=== PATIENT | female | born 1970 | race Caucasian/White ===

== ENCOUNTER 2020-02-24 00:16 | Emergency (ER) | payer OTHER, SELFPAY ==
--- NOTE | ~2020-02-24 | XR_ITS ---
EXAMINATION: XR tibia fibula RT 2V, XR ankle RT min 3V DATE: 02/24/2020 01:02 INDICATION: Right lower leg and ankle 2 weeks post orthopedic instrumentation removal at the right an kle. TECHNIQUE: 1. Anteroposterior and lateral views of the right tibia and fibula were obtained. 2. Anteroposterior, oblique, mortise, and lateral views of the right ankle were obtained. COMPARISON: None. FINDINGS: Old healed fracture deformity at the distal right tibia and fibula. Splinting material about the foot , ankle and distal lower leg which mildly limits assessment of fine bone and soft tissue detail. Alig nment is otherwise normal. There are multiple lucent screw tracks along the tibia and fibula consiste nt with given history of recently removed orthopedic instrumentation. No acute fracture. 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 Prominent subarticular cystic [place]ap[place] ge at the distal tibia. The cortices are indistinct along the talar dome and tibial plafond and as we ll as along the side of the distal fibula. Findings could be related to secondary osteoarthritis also raises concern for septic arthritis and osteomyelitis. Mild osteoarthritis at the first metatarsopha langeal and a few tarsal metatarsal joints. IMPRESSION: 1. Old healed distal right tibia and fibular fractures with lucent screw tracks from reportedly recen tly removed orthopedic instrumentation. No acute fracture. 2. Loss of well-defined cortical margins at the talar dome and adjacent distal tibia and fibula which could be related to advanced secondary osteoarthritis but raises concern for septic arthritis and os teomyelitis. Dr. Pearce discussed these findings with Dr. Rey at 10:35 AM. Reviewed, dictated and finalized at location A. IMPRESSION: 1. Old healed distal right tibia and fibular fractures with lucent screw tracks from reportedly recently removed orthopedic instrumentation. No acute fracture . 2. Loss of well-defined cortical margins at the talar dome and adjacent distal tibia and fibula which could be related to advanced secondary osteoarthritis bu t raises concern for septic arthritis and osteomyelitis. Dr. Pearce discussed these findings with Dr. Rey at 10:35 AM.
[2020-02-24 00:18] VITALS: BP 144/93; PULSE 112; RESP 18; TEMP 36.8; O2SAT 98
--- NOTE | 2020-02-24 00:24 | PC.NURSE ---
Upon walking into patient's room, patient stated I'm out of my pain mediations, I need some more. ALEJANDRO So notified.
--- NOTE | 2020-02-24 01:10 | PC.NURSE ---
PT noted to be screaming at [facility] So asking where the fuck did you even get your license? Look at my X ray why are you calling me a liar? My leg has 23 screws in it and you're calling me a liar saying that's not my fucking leg. I need some fucking pain medication . At bedside to explain to patient that she can be evaluated if she will stop screaming at the staff and be appropriate. Pt continually arguing with staff about how she is in pain and everyone is ignoring her. After a long discussion pt finally agreed to stay and be civil.
--- NOTE | 2020-02-24 01:17 | PC.NURSE ---
Pt reports cp. edp notified. Orders to obtain ekg
--- NOTE | 2020-02-24 01:19 | ED.LOWEXIN ---
HPI - Extremity Injury (Lower) General Chief Complaint: Extremity Injury, Lower Stated Complaint: ankle pain Time Seen by Provider: 02/24/20 00:49 Source: patient Mode of arrival: ambulatory Limitations: no limitations History of Present Illness HPI Narrative: This patient is a 49 year old female who presents for evaluation of right ankle pain. Patient states she has broken her right leg and she had screws and plates removed in [place]. She is concerned that she hit her right leg on floor when she slipped on her crutches. She has a splint in place to immobilize her leg. She states it feels swollen . She states she needs something for pain until she sees her orthopedic surgeon. She reports intermittent chest pain because she is in no much pain. Unable to get full history as patient began cussing and screaming. MD complaint: leg injury Related Data Home Medications Medication Instructions Recorded Confirmed acetaminophen-codeine tablet 02/24/20 gabapentin 300 mg PO TID 02/24/20 meloxicam mg PO DAILY 02/24/20 02/24/20 Allergies Allergy/AdvReac Type Severity Reaction Status Date / Time hydroxyzine Allergy Mild Seizure Unverified 02/24/20 00:22 meperidine Allergy Mild Seizure Unverified 02/24/20 00:22 Review of Systems Cardiovascular: Cardiovascular: Reports chest pain Musculoskeletal: Musculoskeletal: Reports arthralgias [facility] Surgical History Surgical History (Updated 02/24/20 @ 01:37 by Blanca So MD) H/O section Social History Social History (Updated 02/24/20 @ 01:38 by Blanca So MD) Smoking status: Never smoker Gender identity (if verbalized by the patient): Female Exam Const: General: alert Orientation/consciousness: patient oriented x3 HENMT: Head: normocephalic and atraumatic Face and sinus: face symmetric Resp: Effort & Inspection: normal respiratory effort Skin: General skin exam: normal color Rashes: no rashes Extrem: Other: right lower extremity in splint up to mid calf, Psych: Appearance: disheveled Speech and movement: Psychomotor agitation in speech present Course Reevaluation(s) Reevaluation #1: Patient presented to ER with right leg pain . Patient was screaming at staff and me. I tried to talk to patient about giving her pain medication in ER tonight but she just kept screaming. She was upset that I did not feel comfortable prescribing narcotics to go home with given this appears to be chronic post op issue. Patient was complaining of chest pain while screaming. I was trying to further assess patient to see if we need to evaluate for DVT or PE . Staff was trying to put patient on Monitor and perform EKG but she kept screaming that she was leaving. She signed AMA form and states she wanted to go to another hospital. Date: 02/24/20 Time: 01:21 Vital Signs Vital signs: Vital Signs Temperature 98.2 F 02/24/20 00:18 Pulse Rate 112 H 02/24/20 00:18 Respiratory Rate 18 02/24/20 00:18 Blood Pressure 144/93 H 02/24/20 00:18 Pulse Oximetry 98 02/24/20 00:18 Temperature 98.2 F 02/24/20 00:18 Pulse Rate 112 H 02/24/20 00:18 Respiratory Rate 18 02/24/20 00:18 Blood Pressure 144/93 H 02/24/20 00:18 Pulse Oximetry 98 02/24/20 00:18 MDM - Extremity Injury (Lower) Imaging Data Attestation: I personally reviewed and interpreted this imaging study as follows: My impression: right tib fib/right ankle xray- no acute fracture seen Discharge Plan Discharge Clinical Impression: Lower extremity pain, right Patient Disposition: Left Against Medical Advice Condition: Stable Prescriptions: No Action acetaminophen-codeine 300-30 mg tablet RF: 0 meloxicam 7.5 mg Tablet PO DAILY RF: 0 gabapentin 300 mg Capsule 300 mg PO TID RF: 0 Follow-up/Referrals: Walker Osei MD [Primary Care Provider] - Discharge Date/Time: 02/24/20 01:23
--- NOTE | 2020-02-24 01:19 | PC.NURSE ---
Pt in tears saying I want to go to another hospital that gives a fuck about me. You don't want to treat me let me go. I have chest pain and I am probably going to have a heart attack and and then I will calvin the fuck out of your hospital. I need to go to another hospital so I can get treated. I am in fucking pain do you understand?
--- NOTE | 2020-02-24 01:23 | PC.NURSE ---
Pt screaming get me the fuck out of here I hope I have a heart attack and on my way to another hospital I'm going to calvin the fuck out of this hospital. Fuck that doctor where did she get her license? Get me the fuck out of here. PT pushed to WR via w/c ERP at bedside attempting to talk patient into staying. PT refused to stay and was taken out of the department screaming curse words and threatening to calvin the hospital.
--- NOTE | 2020-02-24 01:32 | PC.NURSE ---
Went in room to do an EKG and to hook pt up to the cardiac cath lab radiology technologist after pt started to complain of CP. Upon entering room pt started yelling That raissa escoto treat me! She doesn't believe that this is my leg! Im going to have a heart attack because my chest hurts so bad! Pt informed that I was here to do an EKG to make sure her heart is okay. At that point pt demanded a wheel chair to get her out of this [facility] . ERP entered room to again try and evaluate pt. Pt started yelling and cursing at the ERP. Pt continuing to demand a wheel chair and to be brought to her car. Pt wheeled to car and assisted in ems driver seat. Pt was yelling and cursing the entire way out to her car saying Im going to file a lawsuit on that raissa Johnson, this [facility] and all you stupid raissa nurses! Pt informed that her words are hurtful and not appreciated. Pt also informed on the risks of leaving and that she should come back if she wishes to be evaluated for her CP and or leg pain. Pt then said Fuck off!
== END 2020-02-24 01:23 | disposition left against medical advice (07) ==
PROVIDERS: Emergency Provider General Practice; PCP Family Medicine
DX: M25.571 Pain in right ankle and joints of right foot (principal); R93.6 Abnormal findings on diagnostic imaging of limbs
CPT/HCPCS: 73590; 73610; 99284